=== PATIENT | male | born 1995 | race Caucasian/White ===

== ENCOUNTER 2020-02-21 08:57 | Emergency (ER) | payer BC, OTHER ==
[~2020-02-21] VITALS: Ht 177 cm; Wt 58.0 kg
[~2020-02-21 08:57] MED LIST: MTP25TSR PO; TR1C15 TP
--- NOTE | 2020-02-21 09:11 | ED Chest Pain ---
General Chief Complaint: Chest Pain Stated Complaint: CP Source: patient Exam Limitations: no limitations History of Present Illness Date Seen by Provider: Feb 21, 2020 Time Seen by Provider: 09:08 Initial Comments 25-year-old male brought in with left sided chest pain. Patient had a sharp chest pain approximately 30 minutes after he woke up right around his left nipple. The pain did not radiate. He did get some bilateral tingling in his hands at the distal aspect. 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 Patient has seen Dr. Avila for this. He is not on any medications. He has not had any symptoms since his ablation. Patient denies any shortness of breath, fevers chills. He had mild nausea about 15 minutes after the chest pain. Patient was given aspirin in route by EMS. Patient denies any other systemic moist. Allergies and Home Medications Allergies Coded Allergies: Sulfa (Sulfonamide Antibiotics) (Verified Allergy, Unknown, 02/21/20) Home Medications No Active Prescriptions or Reported Meds Patient Home Medication List Home Medication List Reviewed: Yes Review of Systems Review of Systems Constitutional: No chills, No dizziness, No fever, No malaise EENTM: No Symptoms Reported Respiratory: Denies Cough, Denies Shortness of Air, Denies SOA With Exertion Cardiovascular: Chest Pain, Irregular Heart Rate; Denies Lightheadedness, Denies Syncope Gastrointestinal: Denies Abdominal Pain, Denies Diarrhea; Nausea; Denies Vomiting Musculoskeletal: no symptoms reported Skin: no symptoms reported Psychiatric/Neurological: No Symptoms Reported Endocrine: No Symptoms Reported Past [id number] Hx Past Med/Social Hx: Reviewed Nursing Past Med/Soc Hx Physical Exam Vital Signs Vital Signs - First Documented 02/21/20 09:06 Temp 37.0 Pulse 81 Resp 20 B/P (MAP) 162/95 (117) Pulse Ox 98 Capillary Refill : Height, Weight, BMI Height: '" Weight: lbs. oz. kg; BMI Method: General Appearance: No Apparent Distress, Anxious Respiratory: Lungs Clear, Normal Breath Sounds, No Respiratory Distress Cardiovascular: Regular Rate, Rhythm, Normal Peripheral Pulses Gastrointestinal: Non Tender, Soft Extremity: Normal Capillary Refill, Normal Inspection Neurologic/Psychiatric: Alert, Oriented x3, No Motor/Sensory Deficits, Normal Mood/Affect, junior architect II-XII Norm as Tested Skin: Normal Color, Warm/Dry Progress/Results/Core Measures Results/Orders Lab Results Laboratory Tests Test 02/21/20 09:02 Range/Units White Blood Count 4.4 4.3-11.0 10^3/uL Red Blood Count 5.55 4.35-5.85 10^6/uL Hemoglobin 16.0 13.3-17.7 G/DL Hematocrit 46 40-54 % Mean Corpuscular Volume 83 80-99 FL Mean Corpuscular Hemoglobin 29 25-34 PG Mean Corpuscular Hemoglobin Concent 35 32-36 G/DL Red Cell Distribution Width 12.4 10.0-14.5 % Platelet Count 219 130-400 10^3/uL Mean Platelet Volume 10.3 7.4-10.4 FL Neutrophils (%) (Auto) 57 42-75 % Lymphocytes (%) (Auto) 30 12-44 % Monocytes (%) (Auto) 10 0-12 % Eosinophils (%) (Auto) 3 0-10 % Basophils (%) (Auto) 1 0-10 % Neutrophils # (Auto) 2.5 1.8-7.8 X 10^3 Lymphocytes # (Auto) 1.3 1.0-4.0 X 10^3 Monocytes # (Auto) 0.4 0.0-1.0 X 10^3 Eosinophils # (Auto) 0.1 0.0-0.3 10^3/uL Basophils # (Auto) 0.0 0.0-0.1 10^3/uL Prothrombin Time 13.1 12.2-14.7 SEC INR Comment 1.0 0.8-1.4 Activated Partial Thromboplast Time 22 L 24-35 SEC D-Dimer <= 0.27 0.00-0.49 UG/ML Sodium Level 138 135-145 MMOL/L Potassium Level 3.5 L 3.6-5.0 MMOL/L Chloride Level 104 98-107 MMOL/L Carbon Dioxide Level 21 21-32 MMOL/L Anion Gap 13 5-14 MMOL/L Blood Urea Nitrogen 15 7-18 MG/DL Creatinine 0.86 0.60-1.30 MG/DL Estimat Glomerular Filtration Rate > 60 BUN/Creatinine Ratio 17 Glucose Level 109 H 70-105 MG/DL Calcium Level 9.5 8.5-10.1 MG/DL Corrected Calcium 8.5-10.1 MG/DL Magnesium Level 1.7 1.6-2.4 MG/DL Total Bilirubin 0.6 0.1-1.0 MG/DL Aspartate Amino Transf (AST/SGOT) 14 5-34 U/L Alanine Aminotransferase (ALT/SGPT) 19 0-55 U/L Alkaline Phosphatase 67 40-136 U/L Myoglobin 13.5 10.0-92.0 NG/ML Troponin I < 0.028 <0.028 NG/ML Total Protein 7.2 6.4-8.2 GM/DL Albumin 4.8 H 3.2-4.5 GM/DL My Orders Orders - GARCIAYARITZA L DO Cbc With Automated Diff (02/21/20 09:07) Magnesium (02/21/20 09:07) Chest 1 View, Ap/Pa Only (02/21/20 09:07) Ekg Tracing (02/21/20 09:07) Comprehensive Metabolic Panel (02/21/20 09:07) Myoglobin Serum (02/21/20 09:07) Protime With Inr (02/21/20 09:07) Partial Thromboplastin Time (02/21/20 09:07) Monitor-Rhythm Ecg Trace Only (02/21/20 09:07) Ed Iv/Invasive Line Start (02/21/20 09:07) Troponin I (02/21/20 09:07) Fibrin Degradation Products (02/21/20 09:02) Vital Signs/I&O 02/21/20 02/21/20 09:06 11:20 Temp 37.0 37.0 Pulse 81 71 Resp 20 19 B/P (MAP) 162/95 (117) 121/82 (117) Pulse Ox 98 99 Progress Progress Note : Progress Note Patient with no acute or significant EKG changes. Patient did not have any abnormalities on telemetry while here. Patient with negative labs. Discussed wit h patient the need to follow-up with Dr. Aivla due to his history. Discussed with him he may need to wear a Holter monitor. I would defer that decision to his translator/interpreter. Patient also has symptoms consistent with a little bit of anxiety and hyperventilation. I did review with him hyperventilation syndrome and steps that he can help if he develops of symptoms again. Patient is stable and will be discharged home Departure Impression Primary Impression: Chest wall pain Additional Impression: Palpitations Disposition: HOME, SELF-CARE Condition: Stable Departure-Patient Inst. Patient Instructions: Palpitations (DC), Costochondritis (DC), Pleuritic Chest Pain (DC) Add. Discharge Instructions: Follow-up with Dr. Avila as soon as possible for reevaluation and continuation of care All discharge instructions reviewed with patient and/or family. Voiced understanding. Scripts No Active Prescriptions or Reported Meds YARITZA GARCIA DO Feb 21, 2020 09:11
[2020-02-21 09:13] LABS: BASOPHILS % (AUTO) 1 % (0-10); EOSINOPHILS # (AUTO) 0.1 10^3/uL (0.0-0.3); EOSINOPHILS % (AUTO) 3 % (0-10); HEMATOCRIT 46 % (40-54); LYMPHOCYTES # (AUTO) 1.3 X 10^3 (1.0-4.0); LYMPHOCYTES % (AUTO) 30 % (12-44); MEAN CORPUSCULAR HEMOGLOBIN 29 PG (25-34); MEAN CORPUSCULAR HGB CONC 35 G/DL (32-36); MEAN CORPUSCULAR VOLUME 83 FL (80-99); MEAN PLATELET VOLUME 10.3 FL (7.4-10.4); MONOCYTES # (AUTO) 0.4 X 10^3 (0.0-1.0); MONOCYTES % (AUTO) 10 % (0-12); NEUTROPHILS # (AUTO) 2.5 X 10^3 (1.8-7.8); NEUTROPHILS % (AUTO) 57 % (42-75); PLATELET COUNT 219 10^3/uL (130-400); RED CELL DISTRIBUTION WIDTH 12.4 % (10.0-14.5); WHITE BLOOD COUNT 4.4 10^3/uL (4.3-11.0)
[2020-02-21 09:21] LABS: ALBUMIN 4.8 GM/DL (3.2-4.5); CHLORIDE 104 MMOL/L (98-107); POTASSIUM 3.5 MMOL/L (3.6-5.0); SODIUM 138 MMOL/L (135-145)
[2020-02-21 09:23] LABS: CALCIUM 9.5 MG/DL (8.5-10.1)
[2020-02-21 09:24] LABS: GLUCOSE 109 MG/DL (70-105); TOTAL PROTEIN 7.2 GM/DL (6.4-8.2)
[2020-02-21 09:25] LABS: CARBON DIOXIDE 21 MMOL/L (21-32)
[2020-02-21 09:26] LABS: BILIRUBIN,TOTAL 0.6 MG/DL (0.1-1.0)
[2020-02-21 09:27] LABS: ALKALINE PHOSPHATASE 67 U/L (40-136); CREATININE SERUM 0.86 MG/DL (0.60-1.30); GFR ESTIMATED > 60
[2020-02-21 09:28] LABS: BUN/CREATININE RATIO 17
[2020-02-21 09:29] LABS: FIBRIN DEGRADATION PRODUCTS <= 0.27 UG/ML (0.00-0.49); PARTIAL THROMBOPLASTIN TIME 22 SEC (24-35); PROTHROMBIN TIME PATIENT 13.1 SEC (12.2-14.7)
[2020-02-21 09:30] LABS: ALANINE AMINOTRANSFERASE 19 U/L (0-55)
[2020-02-21 09:31] LABS: MAGNESIUM 1.7 MG/DL (1.6-2.4)
--- NOTE | 2020-02-21 10:19 | Diagnostic Imaging Report ---
INDICATION: Chest pain. EXAMINATION: Portable chest. FINDINGS: The lungs are well-aerated and clear. The heart is not enlarged. No pulmonary edema or hilar adenopathy. No pneumothorax or pleural effusion. No bony abnormalities. IMPRESSION: Normal PA chest. Dictated by: Dictated on workstation # [id number]
[2020-02-21 11:20] VITALS: BP 121/82
== END 2020-02-21 11:20 | disposition home or self-care (01) ==
LOC: ER 08:58
DX: R07.89 Other chest pain (principal); R00.2 Palpitations; R20.2 Paresthesia of skin; R11.0 Nausea; Z88.2 Allergy status to sulfonamides
CPT/HCPCS: 36415; 71045; 80053; 83735; 83874; 84484; 85025; 85379; 85610; 85730; 93005; 93041